=== PATIENT | female | born 1970 | race Two or more races ===

== ENCOUNTER 2022-09-24 01:57 | Inpatient (IN) | payer OTHER ==
[~2022-09-24] VITALS: Ht 160 cm; Wt 65.3 kg
--- NOTE | 2022-09-24 05:20 | NUR ---
RN ADMITTING NOTE RECEIVED PATIENT VIA GURNEY. AWAKE. A/O X4. ABLE TO MAKE NEEDS KNOWN. [place]ORE[place] SPEAKING NEEDS GEOPHYSICAL PROSPECTING PERMIT AGENT. WITH SON AT THE BEDSIDE HELPING WITH THE TRANSLATION. IV ACCESS ON RIGHT AC #20 SALINE LOCK NOTED TO BE PATENT AND INTACT FLUSHING WELL. PATIENT WITH RIGHT HAND SLING DUE TO HER RECENT FALL PER ENDORSEMENT FROM [place] PATIENT HAVE RIGHT SHOULDER ACRO MIOCLAVICULAR SEPARATION. ON NASAL CANNULA 2LPM TOLERATING WELL NO SIGNS OF SOB. NOT IN DISTRESS NOTED. PATIENT ON TELE MONITOR READING OF NORMAL SINUS RHYTHM 70-75BPM. NO COMPLAINS OF CHEST PAIN AT THE MOMENT. PATIENT IS ORIENTED TO THE ROOM AND HOW TO USE A CALL LIGHT WHEN NEEDING HELP. SON TRANSLATE TO THE PATIENT. PATIENT VERBALIZES UNDERSTANDING. ALL BELONGINGS ARE ACCOUNTED FOR. SAFETY MEASURE IN PLACED: BED LOCKED AND IN LOWEST POSITION, SIDE RAILS UP X2, BEDSIDE TABLE AND CALL LIGHT WITHIN PATIENT REACH.
[2022-09-24] MEDS ORDERED: ONDANSETRON HCL/PF 4 MG/2 ML VIAL IVP PRN (06:30)
[2022-09-24] MEDS ORDERED: HYDROCODONE/APAP 5/325MG TABLET PO PRN (06:30)
[2022-09-24] MEDS ORDERED: Z GUARD REMEDY 4 OZ OINT TP PRN (06:30)
[2022-09-24] MEDS ORDERED: MAGNESIUM HYDROXIDE 30 ML UDC PO PRN (06:30)
--- NOTE | 2022-09-24 06:51 | NUR ---
RN CLOSING NOTE PATIENT IN BED AWAKE. A/O X4. ABLE TO MAKE NEEDS KNOWN. [place] CITIZEN SPEAKING NEEDS GROCERY CLERK SELLING. IV ACCESS ON RIGHT AC #20 SALINE LOCK NOTED TO BE PATENT AND INTACT FLUSHING WELL. PATIENT WITH RIGHT HAND SLING DUE TO HER RECENT FALL PER ENDORSEMENT FROM CHILDS PATIENT HAVE RIGHT SHOULDER ACRO MIOCLAVICULAR SEPARATION. ON NASAL CANNULA 2LPM TOLERATING WELL NO SIGNS OF SOB. NOT IN DISTRESS NOTED. PATIENT ON TELE MONITOR READING OF NORMAL SINUS RHYTHM 78BPM. NO COMPLAINS OF CHEST PAIN AT THE MOMENT. ALL NEEDS ARE MET. SAFETY MEASURE IN PLACED: BED LOCKED AND IN LOWEST POSITION, SIDE RAILS UP X2, BEDSIDE TABLE AND CALL LIGHT WITHIN PATIENT REACH. WILL ENDORSE TO NEXT SHIFT NURSE FOR CONTINUITY OF CARE.
[2022-09-24 07:15] LABS: BASOPHILS % (AUTO) 0.4 % (0.0-2.0); EOSINOPHILS % (AUTO) 0.3 % (0.0-6.0); HEMATOCRIT 34 % (33-45); HEMOGLOBIN 11.4 g/dL (11.5-14.8); LYMPHOCYTES # (AUTO) 1.4 K/uL (0.8-4.8); LYMPHOCYTES % (AUTO) 22.1 % (20.0-44.0); MEAN CORPUSCULAR HGB CONC 34 g/dl (31.0-36.0); MEAN CORPUSCULAR VOLUME 84 fL (82-100); MONOCYTES # (AUTO) 0.5 K/uL (0.1-1.30); MONOCYTES % (AUTO) 7.6 % (2.0-12.0); NEUTROPHILS # (AUTO) 4.5 K/uL (1.8-8.9); NEUTROPHILS % (AUTO) 69.6 % (43.0-81.0); PLATELET COUNT (AUTO) 164 K/uL (150-450); RED BLOOD CELL COUNT(AUTO) 4.04 MIL/uL (4.0-5.2); WHITE BLOOD COUNT (AUTO) 6.5 K/uL (4.3-11.0)
[2022-09-24] MEDS: PANTOPRAZOLE 40 MG TABLET.DR PO SCH (07:56)
[2022-09-24] MEDS: ACETAMINOPHEN 325 MG TABLET PO PRN (07:56)
[2022-09-24 07:58] LABS: CHOLESTEROL 166 mg/dL (<200); HDL CHOLESTEROL 53 mg/dL (40-60); LDL 102 mg/dL (0-99); TRIGLYCERIDES 155 mg/dL (30-150)
--- NOTE | 2022-09-24 08:00 | NUR ---
POLICY ISSUE CLERK Opening Note Patient in bed, awake, A/O x4, Danish speaking, family at bedside. IV access at RAC #20 SL. Right arm in sling s/p fall, Right shoulder acro mioclavicular separation. On O2 2L via NC. On tele monitoring. Safety measure in place, bed low, locked, side rails up x2, call light at reach. Will continue to monitor patient.
[2022-09-24 08:04] LABS: ALANINE AMINOTRANSFERASE 31 U/L (12-78); ALBUMIN 3.3 g/dL (3.4-5.0); ALKALINE PHOSPHATASE 77 U/L (46-116); ASPARTATE AMINOTRANSFERASE 21 U/L (15-37); BILIRUBIN,TOTAL 0.5 mg/dL (0.2-1.0); CALCIUM, SERUM 8.7 mg/dL (8.5-10.1); CARBON DIOXIDE 32 mmol/L (21-32); CHLORIDE 104 mmol/L (98-107); CREATININE 0.6 mg/dL (0.6-1.3); GLUCOSE 108 mg/dL (74-106); POTASSIUM 3.1 mmol/L (3.5-5.1); SODIUM SERUM 142 mmol/L (136-145); TOTAL PROTEIN, SERUM 6.9 g/dL (6.4-8.2); UREA NITROGEN, BLOOD 15 mg/dL (7-18)
[2022-09-24] MEDS: ASPIRIN 81 MG TAB.CHEW PO SCH (09:27)
[2022-09-24] MEDS: POTASSIUM CHLORIDE 20 MEQ TAB.PRT.SR PO SCH ×3 (09:27→12:30)
[2022-09-24 09:43] LABS: BILIRUBIN,URINE NEGATIVE (NEGATIVE); COLOR,URINE YELLOW (YELLOW); LEUKOCYTE ESTERASE ,URINE 2+ (NEGATIVE); NITRITE, URINE POSITIVE (NEGATIVE); PROTEIN,URINE TRACE mg/dl (NEGATIVE); UGLUCOSE NEGATIVE (NEGATIVE); UROBILINOGEN,URINE 0.2 EU/dL (0.2)
[2022-09-24] MEDS ORDERED: IOHEXOL-350 100 ML VIAL IV ONE (09:48)
[2022-09-24] MEDS ORDERED: IV NS 0.9% 250 ML IV ONE (09:49)
[2022-09-24 09:57] LABS: BACTERIA,URINE Many /HPF (None Seen); WBC,URINE 51-80 /HPF (0-3)
[2022-09-24 09:58] LABS: SQUAMOUS EPITHELIAL CELL,UR Few /HPF (None Seen)
[2022-09-24] MEDS: METOPROLOL TARTRATE INJ 5 MG/5 ML AMPUL IVP PRN ×6 (10:00→10:25)
[2022-09-24] MEDS ORDERED: METOPROLOL TARTRATE INJ 5 MG/5 ML AMPUL ONE ×2 (10:09→10:21)
[2022-09-24 10:18] VITALS: BP 115/70
[2022-09-24] MEDS ORDERED: NITROGLYCERIN 0.4 MG/TAB BOTTLE SL ONE (10:30)
[2022-09-24 11:21] VITALS: BP 113/71
[2022-09-24] MEDS: NITROFURANTOIN/MONOHYDRATE MACROCRYSTALS 100 MG CAPSULE PO SCH ×2 (13:31→20:24)
[2022-09-24 15:57] VITALS: BP 124/72
--- NOTE | 2022-09-24 19:30 | NUR ---
MATERIAL PROCESSOR OPENING NOTES RECEIVED PATIENT AWAKE IN BED. PATIENT IS A/O TIMES 4. NO PAIN NOTED. NO SOB NOTED. NO DISTRESS NOTED. ABLE TO MAKE NEEDS KNOWN. DAUGHTER AT BED SIDE. AMBULATORY AND BRP. ON TELE MONITOR READING SR. IV ACCESS ON THE RAC G # 20 INTACT AND SL. ALL NEEDS ATTENDED. ALL SAFETY MEASURES IN PLACE. BED LOCKED IN THE LOWEST POSITION. CALL LIGHT AND TABLE IN EASY REACH. SIDE RAILS UP TIMES 2. WILL CONTINUE TO MONITOR CLOSELY.
[2022-09-24 20:00] VITALS: BP 116/70
[2022-09-25] VITALS: BP 133/70
[2022-09-25 04:00] VITALS: BP 115/82
[2022-09-25] MEDS: ACETAMINOPHEN 325 MG TABLET PO PRN (04:23)
--- NOTE | 2022-09-25 04:27 | NUR ---
RN NOTES PATIENT COMPLAINS OF HEADACHE. PRN TYLENOL 650 MG PO GIVEN FOR PAIN AT 0423.WILL ASSESS PAIN IN 1 HOUR.
--- NOTE | 2022-09-25 06:49 | NUR ---
WEBSPHERE COMMERCE DEVELOPER CLOSING NOTES PATIENT AWAKE IN BED. PATIENT IS A/O TIMES 4. NO PAIN NOTED. NO SOB NOTED. NO DISTRESS NOTED. ABLE TO MAKE NEEDS KNOWN. AMBULATORY AND BRP. ON TELE MONITOR READING SR. IV ACCESS ON THE RAC G # 20 INTACT AND SL. ALL NEEDS ATTENDED. ALL SAFETY MEASURES IN PLACE. BED LOCKED IN THE LOWEST POSITION. CALL LIGHT AND TABLE IN EASY REACH. SIDE RAILS UP TIMES 2. WILL ENDORSE FOR YENIFER.
--- NOTE | 2022-09-25 07:10 | NUR ---
TIE CARRIER OPENING NOTES RECEIVED PATIENT AWAKE IN BED, A/O X 4. NO PAIN NOTED. NO SOB NOTED. NO DISTRESS NOTED. ABLE TO MAKE NEEDS KNOWN. AMBULATORY AND BRP. ON TELE MONITOR READING SR-78. IV ACCESS ON THE RAC G # 20 INTACT AND SL. ALL NEEDS ATTENDED. ALL SAFETY MEASURES IN PLACE. BED LOCKED IN THE LOWEST POSITION. CALL LIGHT AND TABLE WITHIN REACH. SIDE RAILS UP TIMES 2. WILL CONTINUE TO MONITOR THE PATIENT
[2022-09-25 07:14] LABS: CALCIUM, SERUM 9.1 mg/dL (8.5-10.1); CREATININE 0.6 mg/dL (0.6-1.3); PHOSPHORUS 3.4 mg/dL (2.5-4.9); POTASSIUM 4.1 mmol/L (3.5-5.1)
[2022-09-25 07:21] LABS: BASOPHILS % (AUTO) 0.9 % (0.0-2.0); EOSINOPHILS % (AUTO) 1.6 % (0.0-6.0); HEMATOCRIT 39 % (33-45); HEMOGLOBIN 12.6 g/dL (11.5-14.8); LYMPHOCYTES # (AUTO) 1.4 K/uL (0.8-4.8); LYMPHOCYTES % (AUTO) 32.6 % (20.0-44.0); MEAN CORPUSCULAR HGB CONC 33 g/dl (31.0-36.0); MEAN CORPUSCULAR VOLUME 84 fL (82-100); MONOCYTES # (AUTO) 0.4 K/uL (0.1-1.30); MONOCYTES % (AUTO) 8.7 % (2.0-12.0); NEUTROPHILS # (AUTO) 2.5 K/uL (1.8-8.9); NEUTROPHILS % (AUTO) 56.2 % (43.0-81.0); PLATELET COUNT (AUTO) 180 K/uL (150-450); RED BLOOD CELL COUNT(AUTO) 4.61 MIL/uL (4.0-5.2); WHITE BLOOD COUNT (AUTO) 4.4 K/uL (4.3-11.0)
--- NOTE | 2022-09-25 07:53 | NUR ---
Received critical report fr [facility]/lab-Troponin at 227. Trending down fr yesterday's 371 (initial) followed by 354. informed
[2022-09-25] MEDS ORDERED: METOPROLOL SUCCINATE 50 MG TAB.SR.24H PO SCH (08:30)
[2022-09-25 08:37] VITALS: BP 125/71
[2022-09-25] MEDS: ASPIRIN 81 MG TAB.CHEW PO SCH (08:41)
[2022-09-25] MEDS: NITROFURANTOIN/MONOHYDRATE MACROCRYSTALS 100 MG CAPSULE PO SCH (08:41)
[2022-09-25] MEDS: PANTOPRAZOLE 40 MG TABLET.DR PO SCH (08:43)
[2022-09-25] MEDS ORDERED: ATORVASTATIN 10 MG TABLET PO SCH (09:00)
[2022-09-25] MEDS ORDERED: ASPI-1169 PO (11:10)
[2022-09-25] MEDS ORDERED: ATOR10TA PO (11:10)
[2022-09-25] MEDS ORDERED: NITR100C15 PO (11:10)
[2022-09-25 12:00] VITALS: BP 114/76
--- NOTE | 2022-09-25 15:00 | NUR ---
ENVIRONMENTAL SCIENCE TECHNICIANPHYSICIAN COMPENSATION ANALYST NOTES DISCHARGED PATIENT IN STABLE CONDITION, A/O X4, FAMILY MEMBERS AT BEDSIDE NO PAIN, SOB NOTED, DISTRESS NOTED, ABLE TO MAKE NEEDS KNOWN. PATIENT IS AMBULATORY. IV ACCESS REMOVED, C/D/I. PHARMACIST AT BEDSIDE WHO PROVIDED MEDICATION INSTRUCTIONS TO THE PATIENT AND FAMILY MEMBERS. PATIENT AND FAMILY MEMBERS WERE GIVEN DISCHARGE INSTRUCTIONS BOTH VERBALLY AND IN WRITING. ALL BELONGINGS ACCOUNTED FOR. PATIENT WAS DISCHARGED TO UNIT AT 1435, SAFELY SAT ON A WHEELCHAIR AND ACCOMPANIED BY STOREROOM CLERK UP TO HOSPITAL EXIT
== END 2022-09-25 14:35 | disposition home or self-care (01) | DRG 54 ==
LOC: TELE 04:38
PROVIDERS: ADMIT Internal Medicine; ATTEND Internal Medicine
DX: G43.909 Migraine, unspecified, not intractable, without status migrainosus (principal); I21.A1 Myocardial infarction type 2; E78.1 Pure hyperglyceridemia; E87.6 Hypokalemia; N39.0 Urinary tract infection, site not specified; M25.511 Pain in right shoulder
CPT/HCPCS: 36415; 73030-TC; 75574; 80048-TC; 80053-TC; 80061-TC; 81001; 83735-TC; 83880; 84100-TC; 84484-TC; 84702-TC; 85025-TC; 87081-TC; 87086-TC; 93307-TC; 97116-TC; 97530-TC; G0378; J3490; J7050; Q9967